=== PATIENT | male | born 1970 | race Two or more races ===

== ENCOUNTER 2019-08-01 13:16 | Emergency (ER) | payer BC ==
[~2019-08-01] VITALS: Ht 165.1 cm; Wt 68.0 kg
[2019-08-01] MEDS ORDERED: ASPIRIN81 MG ORAL (13:27)
[2019-08-01 13:38] VITALS: BP 154/103
--- NOTE | 2019-08-01 13:39 | NUR ---
ED Nurse Note:pt. came with c/o high blood pressure and pounding headache, ambulatory with steady gait no dizziness reported
--- NOTE | 2019-08-01 13:48 | Emergency Room Report ---
History of Present Illness General Chief Complaint: Hypertension Source: Patient Present Illness HPI 49 YO male presents to the ED c/o elevated BP readings daily x 1 month. Pt. reports intermittent TAVERA's. Denies weakness, neck pain/stiffness, recent illness. Denies CP, Palpitations, LOC, AMS, dizziness, Changes in Vision, Sensation, paresthesias, or a sudden severe headache. Pt. reports under a lot of stress at work. Denies significant Pmhx. Pt. reports systolic readings usually in the 160's. He states he has been keeping a log daily. Allergies: Coded Allergies: No Known Allergies (Unverified , 08/01/19) Patient History Past Medical History: see triage record Past Surgical History: none Pertinent Family History: none Reviewed Nursing Documentation: PMH: Agreed; PSxH: Agreed Nursing Documentation-PMH Past Medical History: No Stated History Review of Systems All Other Systems: negative except mentioned in HPI Physical Exam Vital Signs Date Time Temp Pulse Resp B/P (MAP) Pulse Ox O2 Delivery O2 Flow Rate FiO2 08/01/19 13:22 98.1 70 18 154/103 (120) 99 Room Air Sp02 EP Interpretation: reviewed, normal General Appearance: no apparent distress, alert, GCS 15, non-toxic Head: normocephalic, atraumatic Eyes: bilateral eye normal inspection, bilateral eye PERRL ENT: hearing grossly normal, normal voice Neck: full range of motion Respiratory: lungs clear, normal breath sounds, speaking full sentences Cardiovascular #1: regular rate, rhythm, no edema, normal capillary refill Musculoskeletal: gait/station normal, normal range of motion, non-tender Neurologic: alert, oriented x3, responsive, motor strength/tone normal, sensory intact, speech normal, grossly normal Psychiatric: judgement/insight normal Lymphatic: no adenopathy Medical Decision Making PA Attestation Dr. Deal Is my supervising Physician whom patient management has been discussed with. Diagnostic Impression: Primary Impression: Elevated blood pressure reading ER Course 49 YO male presents to the ED c/o elevated BP readings daily x 1 month. Pt. reports intermittent TAVERA's. Denies weakness, neck pain/stiffness, recent illness. Denies CP, Palpitations, LOC, AMS, dizziness, Changes in Vision, Sensation, paresthesias, or a sudden severe headache. Pt. reports under a lot of stress at work. Denies significant Pmhx. Pt. reports systolic readings usually in the 160's. He states he has been keeping a log daily. Ddx considered but are not limited to HTN Urgency/emergency, CVA/TIA, elevated BP, medication non-compliance Vital signs: are WNL, pt. is afebrile H&PE are most consistent with asymptomatic elevated BP reading. ORDERS: none required at this time, the diagnosis is clinical ED INTERVENTIONS: - none required at this time. d/w pt. symptoms that would indicate prompts return to ED. At this time pt. is NAD, no TAVERA and BP elevated but not at a critical level DISCHARGE: At this time pt. is stable for d/c to home. Will provide printed patient care instructions, and any necessary prescriptions. Care plan and follow up instructions have been discussed with the patient prior to discharge. Last Vital Signs Date Time Temp Pulse Resp B/P (MAP) Pulse Ox O2 Delivery O2 Flow Rate FiO2 08/01/19 13:38 98.1 70 18 154/103 99 Room Air Disposition: HOME, SELF-CARE Condition: Stable Scripts Hydrochlorothiazide* (HYDROCHLOROTHIAZIDE*) 12.5 Mg Capsule 12.5 MG ORAL DAILY for 10 Days, #10 CAP Prov: Pema Benton 08/01/19 Patient Instructions: Form - Blood Pressure Record Sheet, How to Take Your Blood Pressure, [id number], Managing Your High Blood Pressure Additional Instructions: Take medications as directed. Follow up with a Primary Care Provider in 3-5 days, even if your symptoms have resolved. Return sooner to ED if new symptoms occur, or current symptoms become worse. - Please note that this Emergency Department Report was dictated using [employer] technology software, occasionally this can lead to erroneous entry secondary to interpretation by the dictation equipment. Pema Benton Aug 01, 2019 13:48
[2019-08-01] MEDS ORDERED: HYDROCHLOROTH12.5 M2 ORAL (13:49)
[2019-08-01 13:54] VITALS: BP 144/89
--- NOTE | 2019-08-01 13:56 | NUR ---
ER DISCHARGE NOTE: Patient is cleared to be discharged per ERMD, pt is aox4, on room air, with stable vital signs. pt was given dc and prescription instructions, pt was able to verbalize understanding, pt is able to ambulate with steady gait. pt took all belongings.
== END 2019-08-01 14:00 | disposition home or self-care (01) ==
LOC: EMR 13:50
DX: R03.0 Elevated blood-pressure reading, without diagnosis of hypertension (principal)
CPT/HCPCS: 99282